=== PATIENT | male | born 1955 | race Caucasian/White ===

== ENCOUNTER 2018-10-25 08:07 | Outpatient (CLI) | payer BC ==
--- NOTE | 2018-10-25 08:25 | ULT ---
ULTRASOUND SPLEEN: HISTORY: Evaluate for splenomegaly FINDINGS: The spleen measures 14.6 cm in length. No splenic mass is seen. IMPRESSION: Mild splenomegaly.
== END 2018-10-25 08:08 | disposition home or self-care (01) ==
LOC: BICULT 08:07
PROVIDERS: ATTEND Internal Medicine Hematology & Oncology
DX: R16.1 Splenomegaly, not elsewhere classified (principal); D72.829 Elevated white blood cell count, unspecified
CPT/HCPCS: 76705

== ENCOUNTER 2018-11-09 08:34 | Day surgery (SDC) | payer BC ==
[2018-11-08 14:42] VITALS: BMI 27.7
[2018-11-09 09:22] LABS: INR-International Normal Ratio 1.1; PTT 30.7 SEC (22.9-36.1); Prothrombin Time 13.8 SEC (12.0-14.7)
[2018-11-09 11:05] VITALS: BP 111/64; TEMP 97.2
--- NOTE | 2018-11-09 11:27 | CT ---
CT Deep Bone Perc Biopsy History: D 72.829 elevated white blood count Comparison: Ultrasound spleen October 25, 2018 Findings: Patient was brought to the CT suite. All questions were answered. Informed consent was obta ined. Timeout performed. The patient's right back was prepped and draped in normal sterile fashion. 5 mL of lidocaine was inst illed into the superficial and deep soft tissues. With CT guidance using a 18-gauge needle 10 mL bone marrow was aspirated and a 2 cm core was obtained. Specimen was given to the cytopathology techn ologist. Patient tolerated the procedure well without complication. Impression: Technically successful CT-guided bone marrow aspiration.
== END 2018-11-09 11:45 | disposition home or self-care (01) ==
LOC: CT 08:34
PROVIDERS: ATTEND Internal Medicine Hematology & Oncology
PROC: 07DS3ZX Extraction of Vertebral Bone Marrow, Percutaneous Approach, Diagnostic (ICD-10-PCS; principal; 2018-11-09)
PROC: [UNRECOGNIZED PROCEDURE] (principal; 2018-11-09)
PROC: 079T3ZX Drainage of Bone Marrow, Percutaneous Approach, Diagnostic (ICD-10-PCS; principal; 2018-11-09)
DX: D72.829 Elevated white blood cell count, unspecified (principal); D69.6 Thrombocytopenia, unspecified; I10 Essential (primary) hypertension; E78.5 Hyperlipidemia, unspecified; Z79.899 Other long term (current) drug therapy
CPT/HCPCS: 20225; 36415; 77012; 85097; 85610; 85730; 88184; 88237; 88305; 88311; 88313; 88341; 88342

== ENCOUNTER 2022-06-21 10:08 | Outpatient (CLI) | payer MEDICARE, OTHER ==
[~2022-06-21 10:08] MED LIST: Iopamidol 370 76% 100 ML VIAL ONE
== END 2022-06-21 10:09 | disposition home or self-care (01) ==
LOC: NM 10:08
PROVIDERS: ATTEND Internal Medicine Hematology & Oncology
DX: M89.9 Disorder of bone, unspecified (principal); D75.81 Myelofibrosis; R93.7 Abnormal findings on diagnostic imaging of other parts of musculoskeletal system; C79.51 Secondary malignant neoplasm of bone; R59.0 Localized enlarged lymph nodes
CPT/HCPCS: 72193; 78306; 82565; A9503

== ENCOUNTER → 2022-07-01 | Day surgery (SDC) | payer MEDICARE, OTHER ==
[2022-07-01 09:07] LABS: PTT 27.4 sec (22.9-36.1)
[2022-07-01 09:23] LABS: #Eosinphils 0.1 thou/uL (0.0-0.7); #Lymphocytes 1.3 thou/uL (1.20-3.40); #Monocytes 0.4 thou/uL (0.11-0.59); %Basophils 0.3 % (0.0-1.0); %Eosinophils 1.1 % (0.0-10.0); %Lymphocytes 16.6 % (21.0-51.0); %Monocytes 4.9 % (0.0-10.0); %Neutrophils 77.2 % (42.0-75.0); Hemoglobin 15.1 g/dL (14.0-18.0); Mean Corpuscular HGB CONC 33.2 g/dL (32.0-36.0); Mean Corpuscular Hemoglobin 39.2 pg (27.0-31.0); Mean Platelet Volume 6.9 fL (7.4-10.4); Platelet Count 414 10x3/uL (130-400); Red Blood Cell (RBC) Count 3.86 mill/uL (4.70-6.10); White Blood Cell (WBC) Count 7.7 10x3/uL (4.8-10.8)
[2022-07-01 09:26] VITALS: BP 117/76; TEMP 97.4
== END | disposition home or self-care (01) ==
LOC: CT 08:38
PROVIDERS: ATTEND Internal Medicine Hematology & Oncology
PROC: 07DR3ZX Extraction of Iliac Bone Marrow, Percutaneous Approach, Diagnostic (ICD-10-PCS; principal; 2022-07-01)
DX: C79.51 Secondary malignant neoplasm of bone (principal); C61 Malignant neoplasm of prostate; D75.81 Myelofibrosis; I10 Essential (primary) hypertension; E78.5 Hyperlipidemia, unspecified; Z86.16 Personal history of COVID-19; Z79.82 Long term (current) use of aspirin; Z79.899 Other long term (current) drug therapy
CPT/HCPCS: 20225; 77012; 85025; 85610; 85730; 88307; 88311; 88313; 88333; 88341; 88342

== ENCOUNTER 2022-10-26 07:32 | Outpatient (CLI) | payer MEDICARE, OTHER ==
[2022-10-26] MEDS ORDERED: Iopamidol 370 76% 100 ML VIAL ONE (10:26)
== END 2022-10-26 07:33 | disposition home or self-care (01) ==
LOC: NM 07:32
PROVIDERS: ATTEND Internal Medicine Hematology & Oncology
DX: C61 Malignant neoplasm of prostate (principal); C79.51 Secondary malignant neoplasm of bone; D75.81 Myelofibrosis
CPT/HCPCS: 71260; 74177; 78306; A9503; Q9967

== ENCOUNTER 2023-04-11 07:59 | Outpatient (CLI) | payer MEDICARE, OTHER ==
[2023-04-11] MEDS ORDERED: Iopamidol 370 76% 100 ML VIAL ONE (09:14)
== END 2023-04-11 08:00 | disposition home or self-care (01) ==
LOC: CT 07:59
PROVIDERS: ATTEND Internal Medicine Hematology & Oncology
DX: C61 Malignant neoplasm of prostate (principal); C79.51 Secondary malignant neoplasm of bone; K76.0 Fatty (change of) liver, not elsewhere classified; R16.2 Hepatomegaly with splenomegaly, not elsewhere classified; R59.0 Localized enlarged lymph nodes
CPT/HCPCS: 71260; 74177; 78306; 82565; A9503

== ENCOUNTER 2023-08-15 07:29 | Outpatient (CLI) | payer MEDICARE, OTHER ==
[2023-08-15] MEDS ORDERED: Iopamidol 370 76% 100 ML VIAL ONE (11:01)
== END 2023-08-15 07:30 | disposition home or self-care (01) ==
LOC: CT 07:29
PROVIDERS: ATTEND Internal Medicine Hematology & Oncology
DX: C61 Malignant neoplasm of prostate (principal); C79.51 Secondary malignant neoplasm of bone; K76.0 Fatty (change of) liver, not elsewhere classified; I71.43 Infrarenal abdominal aortic aneurysm, without rupture
CPT/HCPCS: 71260; 74177; 78306; 82565; A9503; Q9967

== ENCOUNTER 2023-12-05 07:33 | Outpatient (CLI) | payer MEDICARE, OTHER ==
[2023-12-05] MEDS ORDERED: Iopamidol 370 76% 100 ML VIAL ONE (08:37)
== END 2023-12-05 07:34 | disposition home or self-care (01) ==
LOC: CT 07:33
PROVIDERS: ATTEND Internal Medicine Hematology & Oncology
DX: C61 Malignant neoplasm of prostate (principal); C79.51 Secondary malignant neoplasm of bone; D75.81 Myelofibrosis; I71.43 Infrarenal abdominal aortic aneurysm, without rupture
CPT/HCPCS: 71260; 74177; 78306; 82565; A9503; Q9967

== ENCOUNTER 2024-04-06 11:45 | Outpatient (CLI) | payer MEDICARE, OTHER | END 2024-04-06 11:46 | disposition home or self-care (01) | LOC: PET 11:45 | PROVIDERS: ATTEND Internal Medicine Hematology & Oncology | DX: C61 Malignant neoplasm of prostate (principal); C79.51 Secondary malignant neoplasm of bone; D75.81 Myelofibrosis; N42.89 Other specified disorders of prostate | CPT/HCPCS: 78815; A9552; A9595 ==